=== PATIENT | male | born 1980 | race Caucasian/White ===

== ENCOUNTER 2018-07-08 00:53 | Inpatient (IN) ==
[2018-07-08] MEDS ORDERED: NORCO-7.5 PO ONE (01:33)
[2018-07-08] MEDS ORDERED: TORADOL IM ONE (01:33)
--- NOTE | 2018-07-08 02:06 | PROVIDER DOCUMENTATION ---
This chart was entered by Ioana Porras Scribe, acting as scribe for Concha Christine MD. HPI-EENT General - General Source: patient, family - History of Present Illness-EENT General EENT Location: reports: mouth, facial Quality of Pain: reports: aching Severity: reports: mild Onset/Duration: reports: other (one month, worsening 1 wk ago) Timing: reports: still present Recently seen or treated by another doctor?: Yes ([facility] ) - Throat/Dental Throat/Dental Problem Symptoms: reports: jaw pain (rt jaw), swelling of jaw/face (rt hinduism) <Concha Christine - Last Filed: 07/08/18 06:43> <Chris Valencia - Last Filed: 07/08/18 07:45> - General Chief Complaint: Toothache Stated Complaint: PAIN IN FACE/JAW/NECK Time Seen by Provider: 07/08/18 00:56 Allergies/Adverse Reactions: Patient Allergies Allergy/AdvReac Type Severity Reaction Status Date / Time cefaclor [From Ceclor] Allergy Unknown Verified 07/05/18 16:19 Penicillins Allergy Unknown Verified 07/05/18 16:19 Sulfa (Sulfonamide Allergy Unknown Verified 07/05/18 16:19 Antibiotics) Home Medications: Home Medication List Medication Instructions Recorded Confirmed Last Taken Type Azithromycin [Zithromax Z-Andrew] 250 mg PO DIRECTED #1 pkg 06/19/18 Unknown Rx Doxycycline Hyclate 100 mg PO BID 06/19/18 06/19/18 Unknown History Prednisone 10 mg PO DIRECTED 06/19/18 06/19/18 Unknown History Alprazolam [Xanax] 0.5 mg PO TID PRN #12 tab 07/05/18 Unknown Rx - History of Present Illness-EENT General Nature of Presenting Problem: 37 yom presents w/family to ed w/cc rt sided jaw, swollen rt hinduism for 1 month but worsening pain for 1 wk. pt came to er sunday, saw dr. juares and was dx w/anxiety. pt went to [facility] and was given toradol shot. pt sts shot helped a little. pt was dx w/tmj and followed by dr. arturo richards. pt tried to call eent when pain became worse and was referred to er. pt mother at bedside sts pt can't sleep or swallow and is breaking out in sweats. pt also rx flexeril and toradol by ENT. pt is anxious in ed. family is at bedside. pt had wisdom teeth removed on 04-27-18 pt and rpts pain started 1 wk after sx. (Concha Christine) Review of Systems - Adult - REVIEW OF SYSTEMS - ADULT Constitutional: reports: see HPI, other. denies: fever, fatique, night sweats Eyes: reports: no symptoms reported Ears, Nose, Mouth & Throat: reports: see HPI, other (rt sided jaw pain and rt hinduism swelling). denies: ear pain, nose pain, throat pain Cardiovascular: reports: no symptoms reported Respiratory: reports: no symptoms reported Gastrointestinal: reports: no symptoms reported Genitourinary: reports: no symptoms reported Musculoskeletal: reports: no symptoms reported Integumentary: reports: see HPI, other (diaphoresis). denies: hives, itching, skin sores/ulcer Neurological: reports: no symptoms reported Psychiatric: reports: see HPI, insomnia (due to jaw and hinduism pain). denies: depression, emotional problems, suicidal thoughts Endocrine: reports: no symptoms reported Hematologic/Lymphatic: reports: no symptoms reported Allergic/Immunologic: reports: no symptoms reported All Other Systems: Reviewed and Negative <Concha Christine - Last Filed: 07/08/18 06:43> Past History - Adult - PAST MEDICAL HISTORY-ADULT Review of Records: reports: Old Records Reviewed, Nursing Assessment Review, Medications Reviewed, Social history reviewed & non-contributory. Major Childhood Illnesses: reports: denies history Cardiovascular: reports: denies history Respiratory: reports: asthma Gastrointestinal: reports: denies history Obstetrical/Gynecological: reports: denies history Genitourinary: reports: denies history Musculoskeletal: reports: denies history Neurological: reports: denies history Endocrine/Immune: reports: denies history Other Conditions: reports: other (tmj) - PRIOR SURGERIES/PROCEDURES Surgical/Procedure History: reports: recent surgery, other (wisdom teeth) - IMMUNIZATION STATUS Childhood Immunizations: See Nurse Assessment Flu Vaccine: See Nurse Assessment - FAMILY HISTORY Family History: reviewed, not pertinent - SOCIAL HISTORY Smoking: cigarettes, less than 1 pack/day Provider spent 3-5 mins advising pt. on dangers of tobacco.: Discussed manners to quit use, and f/u contacts for add'l counseling. Substance Use: none/never <Concha Christine - Last Filed: 07/08/18 06:43> Physical Exam- EENT - Physical Exam EENT Initial Vital Signs Reviewed: Yes General Appearance: alert, moderate distress, anxious. negative: slow to respond, obtunded, combative Eye Exam: bilateral eye: normal inspection Ear Exam: bilateral ear: auricle normal Nasal Exam: normal inspection Throat Exam: normal mouth inspection, other (rt hinduism swollen, pt can only open mouth a little due to pain. tenderness to right mandible). negative: tongue swollen, tonsillar exudate, tonsillar swelling, uvula swelling Neck: full range of motion, supple Respiratory: no respiratory distress Cardiovascular: normal peripheral pulses Abdominal Exam: negative: distended Back Exam: normal inspection Extremity: normal range of motion Integumentary: normal color, normal turgor, warm/dry, other (swelling to right hinduism) Neurologic: grossly normal, no motor/sensory deficits Psych/Mental Status: oriented x 3, anxious. negative: normal mood/affect, disheveled, depressed affect, paranoid <Concha Christine - Last Filed: 07/08/18 06:43> Progress - PLAN OF CARE/RESULTS Result Diagrams: 07/08/18 03:38 07/08/18 03:38 - REASSESSMENT Reassessment #1 Time Reassessed: 03:27 Status: improving Reassessment Comment: spoke to pt about CT results, will page [facility] - CT/MRI 1 CT Study: Neck, other (Max Face) Impression: See EMR Report (Thickening of the right temporalis, masseter, and pterygoid muscles with surrounding edema. No fluid collections. Mild right parapharyngeal fat stranding. Adenoids and tonsils are unremarkable. No prevertebral fluid. Salivary glands WNL. Epiglottis normal. Lung apices are clear. No fracture. The right mandibular angle has a permeative appearance with suble periosteal thickening. Teeth #31 and #32 are absent. Impression: Right facial musculature swelling with surroudning edema. Suspect right mandible osteomyelitis as the causea. Recommend contrast enhanced neck CT.) - CONSULTS/PCP/HOSPITALIST Notification #1 *Consult/PCP/Hospitalist*: [place] [facility] Time Discussed: 03:45 Consult Disposition: other (OMFS at [facility] c iron worker, Dr Buckner, declines consult and states that pt needs to discuss with the original oral surgeon who removed the teeth.) - CHANGE OF SHIFT REPORT (ED Provider) 1 Report Given and Care Transferred to:: Dr Valencia Time of Transfer: 06:45 Items Pending: Physician Consult/Arrival (Pending Dr Lugo with oral surgery to take call at 0700 and discuss case with him and final dispo.) <Concha Christine - Last Filed: 07/08/18 06:43> - PLAN OF CARE/RESULTS Result Diagrams: 07/08/18 03:38 07/08/18 03:38 - CONSULTS/PCP/HOSPITALIST Notification #2 Consult: [place] Time Discussed: 07:44 Consult Disposition: Admit <Chris Valencia - Last Filed: 07/08/18 07:45> - PLAN OF CARE/RESULTS Progress/Plan/Lab Results: Vital Signs - 8 hr 07/08/18 01:02 07/08/18 03:29 Temperature 98.9 F 99.3 F Pulse Rate 105 H 97 H Respiratory Rate 29 H 18 Blood Pressure 124/82 119/76 O2 Sat by Pulse Oximetry 100 95 Laboratory Results - last 24 hr 07/08/18 07/08/18 07/08/18 03:38 03:38 03:38 WBC 20.35 H RBC 4.32 L Hgb 13.1 L Hct 38.3 L MCV 88.7 MCH 30.3 MCHC 34.2 RDW Std Deviation 12.9 Plt Count 401 H MPV 9.3 Immature Gran % (Auto) 0.8 H Neut % (Auto) 73.3 Lymph % (Auto) 12.8 L [place] % (Auto) 12.7 H Eos % (Auto) 0.2 Baso % (Auto) 0.2 Immature Gran # (Auto) 0.16 H Neut # (Auto) 14.92 H Lymph # (Auto) 2.60 [place] # (Auto) 2.59 H Eos # (Auto) 0.04 Baso # (Auto) 0.04 ESR 52 H Sodium 130 L Potassium 4.1 Chloride 94 L Carbon Dioxide 27 Anion Gap 9 BUN 11 Creatinine 0.7 Estimated GFR/1.73 m2 > 60 BUN/Creatinine Ratio 16 Glucose 113 H Calculated Osmolality 261 Calcium 8.8 Total Bilirubin 0.42 AST 13 ALT 14 Alkaline Phosphatase 74 C-React Prot High Sens > 10.000 Total Protein 6.2 L Albumin 3.7 Globulin 2.5 Albumin/Globulin Ratio 1.5 Plasma Lactate 07/08/18 03:38 WBC RBC Hgb Hct MCV MCH MCHC RDW Std Deviation Plt Count MPV Immature Gran % (Auto) Neut % (Auto) Lymph % (Auto) [place] % (Auto) Eos % (Auto) Baso % (Auto) Immature Gran # (Auto) Neut # (Auto) Lymph # (Auto) [place] # (Auto) Eos # (Auto) Baso # (Auto) ESR Sodium Potassium Chloride Carbon Dioxide Anion Gap BUN Creatinine Estimated GFR/1.73 m2 BUN/Creatinine Ratio Glucose Calculated Osmolality Calcium Total Bilirubin AST ALT Alkaline Phosphatase C-React Prot High Sens Total Protein Albumin Globulin Albumin/Globulin Ratio Plasma Lactate 0.6 Orders Category Date Time Status CT MAXILLOFACIAL(SINUS) W/O CO [CT] Stat Exams 07/08/18 01:[address] NECK W/O CONTRAST [CT] Stat Exams 07/08/18 01:32 Taken BLOOD CULTURE [BLDCUL] Stat Lab 07/08/18 03:38 Results CBC WITH ELECTRONIC DIFF [HEME] Stat Lab 07/08/18 03:38 Completed COMPREHENSIVE METABOLIC PANEL [CHEM] Stat Lab 07/08/18 03:38 Completed CRP HIGH SENSITIVITY Stat Lab 07/08/18 03:38 Completed LACTATE, PLASMA [CHEM] Stat Lab 07/08/18 03:38 Completed SED RATE [HEME] Stat Lab 07/08/18 03:38 Completed Hydrocodone/APAP 7.5 mg/325 mg [Chamberlain-7.5] Med 07/08/18 01:33 Discontinued 1 each PO NOW ONE Ketorolac [Toradol] Med 07/08/18 01:33 Discontinued 60 mg IM NOW ONE 0327: Spoke to family and patient regarding CT findings. Pain better controlled and patient more calm 0330: Paged [facility] to discuss with OMFS c iron worker 0345: Spoke to [facility] stating that they oaged Dr Buckner who states that patient needs to be evaluated by the original surgeon who removed the wisdom teeth and he declines the consult 0347: Spoke to family regarding holding patient in the ED until Dr Lugo who is c iron worker for oral surgery at 0700 vs trying to call Dr Gibson who is the oral surgeon who removed the wisdom teeth vs admission to hospitalist for OBS. Will hold off OBS admission at this time until we can assure that Dr Lugo will be willing to be consulted. Family is requesting the original oral surgeon Dr Gibson not be called as at this point they would like a 2nd opinion. Will await to page Dr Lugo until 0700. (Concha Christine) Departure - Critical Care Note This patient required my direct & personal management of CC.: No <Concha Christine - Last Filed: 07/08/18 06:43> - Departure Date of Disposition Decision: 07/08/18 Time of Disposition Decision: 07:44 Certified Medical Emergency: Emergent - Critical Care Note This patient required my direct & personal management of CC.: No <Chris Valencia - Last Filed: 07/08/18 07:45> - Departure DIAGNOSIS: Osteomyelitis of mandible Disposition: ADMITTED INPATIENT 09 Condition: Good Additional Freetext Instructions: ED Follow Up Instructions: You have been treated by a care provider in the Emergency Department. These instructions are being provided to you so you can have an understanding of how to care for yourself upon discharge. Upon discharge from the Emergency Department, you are responsible for making arrangements for follow-up care by a physician of your choice. Take all prescribed medications as directed. Return to the Emergency Department immediately for any new or worsening symptoms. You may call the Physician Referral phone number at [phone] to obtain a list of Physicians who are taking new patients. Referrals and Follow-Ups: Jacques Garibay DO [Primary Care Provider] - Attestation - Physician/ CHRISSY Attestation Patient care was provided by Advanced Practice Provider:: No The physician spent face to face time with patient:: Yes Advanced Practice Provider documentation review:: Supervising physician onsite and consulted in the evaluation and care of this patient. The physician did have a face to face encounter with the patient. <Concha Christine - Last Filed: 07/08/18 06:43> This chart was documented by the indicated vonda (Ioana Porras, Alexandreaibe) and accurately reflects the services I performed and decisions made by me, Concha Puga MD, as attested by the provider's signature.
[2018-07-08 04:02] LABS: BASO# 0.04 X1000 (0.0-0.2); BASO% 0.2 % (0.0-0.8); EOS# 0.04 X1000 (0.0-0.7); EOS% 0.2 % (0.0-10.0); HEMATOCRIT 38.3 % (42.0-52.0); HEMOGLOBIN 13.1 g/dL (14.0-18.0); IMM GRAN# 0.16 X1000 (0.0-0.04); IMM GRAN% 0.8 % (0.0-0.5); LYMPH% 12.8 % (20.5-51.1); MCH 30.3 PG (27-31); MCHC 34.2 g/dL (33-37); MCV 88.7 FL (81-99); MONO# 2.59 X1000 (0.11-0.59); MONO% 12.7 % (1.7-9.3); MPV 9.3 FL (7.4-10.4); NEUT# 14.92 X1000 (1.4-6.5); NEUT% 73.3 % (42.2-75.2); PLT 401 X1000 (130-400); RBC 4.32 XMIL (4.7-6.1); RDW 12.9 % (11.5-14.5); WBC 20.35 X1000 (4.8-10.8)
[2018-07-08 04:22] LABS: AGAP 9; ALB/GLOB RATIO 1.5; ALBUMIN 3.7 g/dL (3.5-5.0); ALKALINE PHOSPHATASE 74 U/L (32-122); BUN 11 mg/dL (8-22); CALCIUM 8.8 mg/dL (8.8-10.2); CHLORIDE 94 mmol/L (98-107); COSMO 261; CREATININE 0.7 mg/dL (0.7-1.2); ESTIMATED GFR > 60; GLUCOSE 113 mg/dL (70-104); GOT 13 U/L (10-34); GPT 14 U/L (10-44); POTASSIUM 4.1 mmol/L (3.5-5.1); SODIUM 130 mmol/L (136-145); TCO2 27 mmol/L (25-35); TOTAL BILIRUBIN 0.42 mg/dL (0.20-1.00); TOTAL PROTEIN 6.2 g/dL (6.3-8.3)
[2018-07-08 05:07] LABS: SED RATE 52 mm/hr (0-15)
--- NOTE | 2018-07-08 07:51 | Diag Imaging Result Doc PS360 ---
EXAM: CT MAXILLOFACIAL(SINUS) W/O CO 07/08/2018 HISTORY: swelling/pain in neck/face, states cant swallow TECHNIQUE: CT of the facial bones COMMENT: There is osteolysis in the angle of the mandible extending into the posterior mandibular body on the right, and there is some periodontal disease posteriorly. Moth-eaten destruction extends into the ramus. The mandibular condyles are intact. The paranasal sinuses are clear. The epiglottis and hypopharynx are normal in appearance. The pharynx and nasopharynx are unremarkable, there is some swelling of the right masseter and soft tissue swelling on the medial side of the mandibular ramus is also present with some displacement of the pterygoids medially. Given the lack of contrast on the examination, the possibility of sublingual cellulitis/abscess (Jerad's Angina) cannot be excluded. IMPRESSION: Probable chronic osteomyelitis of the right mandible with extension into the soft tissues both medially and laterally and possibly into the sublingual space on the right. Electronically signed by Connor Persaud 07/08/2018 7:49 AM
--- NOTE | 2018-07-08 07:56 | Diag Imaging Result Doc PS360 ---
EXAM: CT NECK W/O CONTRAST 07/08/2018 HISTORY: swelling/pain in neck/face, states cant swallow TECHNIQUE: This exam was performed using automated exposure control, adjustment of mA or kV according to patient size, and/or use of iterative reconstruction technique. COMMENT: There is some questionable soft tissue swelling in the sublingual space particularly on the right side. There is destruction of the right mandibular angle region, which has been previously described (see CT of the facial bones,) and which is probably related to osteomyelitis following wisdom tooth extraction. This appears to be associated with soft tissue swelling deep to the masseter and also on the lateral aspect of the pterygoid muscles displacing them medially. The borders of the abnormality are not as clear as they would have been had contrast been given, however this may be up to 15 mm in thickness. The visualized portion of the chest is unremarkable. There are no additional osseous abnormalities. IMPRESSION: Chronic osteomyelitis of the right mandible with cellulitis/abscess in the surrounding soft tissues, possibly including the sublingual space. Electronically signed by Connor Persaud 07/08/2018 7:53 AM
[2018-07-08] MEDS ORDERED: ZOFRAN IV PRN (07:58)
[2018-07-08] MEDS ORDERED: NS 1,000 ML IV ONE (07:58)
[2018-07-08] MEDS ORDERED: TYLENOL PO PRN (07:58)
[2018-07-08] MEDS ORDERED: VANCOMYCIN IV PER PHARMACY MISC SCH (08:00)
[2018-07-08] MEDS ORDERED: XANAX PO PRN (08:00)
[2018-07-08] MEDS ORDERED: TORADOL IV SCH (08:00)
[2018-07-08] MEDS ORDERED: AZACTAM 1 GM in NS 50 ML IV ONE (09:00)
[2018-07-08] MEDS ORDERED: AZACTAM 1 GM in NS 50 ML IV SCH (09:00)
--- NOTE | 2018-07-08 09:27 | Diag Imaging Result Doc PS360 ---
EXAM: CT NECK W/CONTRAST 07/08/2018 HISTORY: poss. right mandibular osteomyelitis TECHNIQUE: This exam was performed using automated exposure control, adjustment of mA or kV according to patient size, and/or use of iterative reconstruction technique. COMMENT: There is soft tissue swelling and apparent abscess or necrotic mass extending in the grad intern space above the coronoid process of the right side of the mandible, and between the coronoid and the mandibular condyle and on both sides of the mandibular ramus. This displaces the pterygoid muscles medially. It is most well-circumscribed, however superiorly posterior to the coronoid process where it measures 2.5 cm in transverse dimension. Bony destruction of the right side of the mandible has been previously discussed. There are nonspecific submandibular nodes and spinal accessory nodes on the right. No evidence of abnormal contrast enhancement is present in the sublingual space. IMPRESSION: Chronic osteomyelitis of the right side of the mandible with abscess in the upper grad intern space on the right. Electronically signed by Connor Persaud 07/08/2018 9:24 AM
--- NOTE | 2018-07-08 10:50 | HISTORY AND PHYSICAL ---
PRIMARY CARE PHYSICIAN: Dr. Jacques Garibay DENTIST: Dr. Zamarripa ENT: Dr. Doan ORAL SURGEON: Dr. Gibson from [facility] CHIEF COMPLAINT: Right jaw pain. HISTORY OF PRESENT ILLNESS: Mr. Aaron Will is a 37-year-old male with a medical history of GERD and asthma, who states that on 04/27/2018 had a right lower jaw wisdom tooth and molar extraction secondary to the wisdom tooth causing pressure on a nerve which was causing numbness in the right side of lower lip. He states that he was fine for about a week to 1-1/2 weeks after surgery and then started developing pain in the right lower jaw region to the point it was difficult to chew food and swallow. He went to see his oral surgeon, Dr. Gibson, about 1-1/2 weeks after surgery, who stated that postop followup looked good. There appeared to be no infection at that time. He continued to have pain in that area. He went back to Dr. Gibson who actually pulled out a bone spur from that location of surgery, and he did that in the office. Afterwards, he started developing right ear pain. He went to the [place] ER at that time who then referred him to ENT. So he went to see Dr. Doan with ENT who did some x-ray imaging of the jaw and diagnosed him with TMJ, started him on steroids and pain medicine. Then on Sunday, due to symptoms that were worsening, he represented to the emergency department where he was diagnosed with anxiety and sent back home with Xanax. Symptoms continued to worsen. He developed night sweats, swelling, unable to swallow solids, just only able to take in fluids. He had weight loss. So he represented. Evaluation reveals that he has an elevated white blood cell count of 20,000, elevated CRP, and imaging showed that he has chronic osteomyelitis of the right mandible and cellulitis and abscess of the surrounding tissues, possibly including the sublingual space, and that was a CT of the neck without contrast. With contrast showed the abscess in the upper corporate strategy associate space on the right. It is showing some bone destruction. The ER physician attempted to contact the on-call oral maxillofacial surgeon but was unsuccessful at getting in touch with the on-call doctor. We will consult Dr. Johnson and get him started on broad spectrum antibiotics. There was also an attempt to get him transferred to [facility] which that was turned down as well. PAST MEDICAL HISTORY: 1. GERD. 2. Asthma. PAST SURGICAL HISTORY: Right mandibular wisdom tooth with molar tooth, a total of 2 teeth were extracted, on 04/27/2018, and he has also had right mandible bone spur removed from that same location. SOCIAL HISTORY: The occasional cigar. Denies alcohol or illicit drug use. He is . FAMILY HISTORY: Mother had colon cancer. Father's side of the family has heart disease. ALLERGIES: Cefaclor, penicillin and sulfa. Penicillin causes rash. Sulfa causes anaphylaxis. HOME MEDICATIONS: Have not been verified. He was most recently sent home with some Xanax. It looks like he has also had what looks like doxycycline, prednisone, azithromycin earlier this month. The mother also states he has a rescue inhaler if he needed it for his asthma. REVIEW OF SYSTEMS: A 14-point review of systems was complete, and all were negative except for those mentioned in the above HPI. He denies having any foul taste in his mouth or any purulent drainage from the area. It was very difficult to visualize that area, as he was having difficulty opening his mouth wide enough. There is some soft tissue swelling in his right mandible area and along the neck a little bit, but he complains of pain in this area, unable to open his mouth, and night sweats. Otherwise, no other complaints. PHYSICAL EXAMINATION: VITAL SIGNS: Temperature is 98.4, heart rate 78, respiratory rate 19, blood pressure 111/62, O2 saturation 99% on room air. GENERAL: Mr. Aaron Will is a 37-year-old male. He is in no acute distress. He is able to answer questions appropriately. HEENT: Atraumatic. He is normocephalic. There is palpable swelling in the right mandibular area. Not hot to touch. Pupils are equal, round and reactive to light. Extraocular movements were intact. Mucous membranes are moist. There is difficulty in visualization of the right with some tooth excision areas, he was unable to open his mouth fully. NECK: Mild swelling in the right upper aspect of his neck. Otherwise no other palpable masses. Trachea is midline. CARDIOVASCULAR: S1, S2. Regular rate and rhythm. No rubs, gallops or murmurs. EXTREMITIES: No lower extremity edema. Plus 2 dorsalis and radial pulses. Negative JVD or carotid bruits. PULMONARY: Clear to auscultation with bilateral breath sounds. No accessory muscle use or work of breathing noted. GASTROINTESTINAL: Soft, nontender and nondistended. Positive bowel sounds x4. EXTREMITIES: Moves all extremities equally with full range of motion. NEUROLOGICAL: Alert and oriented x3. Follows commands. Sensory is intact. SKIN: Warm, dry and intact. DIAGNOSTIC DATA: White blood cells 20,000, hemoglobin 13, hematocrit 38, platelet count 401. Sodium is 130, potassium 4.1, BUN is 11, creatinine 0.7, glucose 113, calcium 8.8, bilirubin 0.42, AST is 13, ALT is 14. CRP greater than 10. ESR is 52. Total protein 6.2. Albumin is 3.7. Serum lactate 0.6. IMAGING: He had a CT of the maxillofacial sinus without contrast that showed probable chronic osteomyelitis of the right mandible with extension into the soft tissues both medially and laterally and possible into the sublingual space on the right. He had a neck CT without contrast which showed chronic osteomyelitis of the right mandible. The cellulitis abscess in the surrounding soft tissues possibly including the sublingual space. He had a neck CT with contrast that showed chronic osteomyelitis of the right side of the mandible with abscess in the upper corporate strategy associate space on the right. There is soft tissue swelling and apparent abscess or necrotic mass extending in the corporate strategy associate space above the coronoid process of the right side of the mandible and between the coronoid and the mandibular condyle and on both sides of the mandibular ramus. This displaces the pterygoid muscles medially. It is most well circumscribed, however, superiorly posterior to the coronoid process where it measures 2.5 cm in transverse dimension. There is bony destruction of the right side of the mandible, nonspecific submandibular nodes and spinal accessory nodes on the right. ASSESSMENT AND PLAN: 1. Chronic osteomyelitis of the right side of the mandible with abscess in the upper corporate strategy associate space on the right. Possible necrotic mass per CT of the neck with contrast. The on-call oral maxillofacial surgery, there were difficulties getting in touch with him. [facility] denied the transfer, and so he is here. We are going to treat him with IV antibiotics and consult Dr. Johnson and treat his pain with A[place]ate. He has inflammatory factors that are elevated, so we will do some IV Toradol that will help with the pain and inflammation as well. 2. History of gastroesophageal reflux disease. 3. History of asthma. No exacerbation. 4. DVT prophylaxis with SCDs. Dictated by VINICIUS Andre for Maryjo Sharp MD cc: VINICIUS Andre MD I performed a face to face encounter on the patient. I reviewed all labs and imaging on the patient. I agree with the H&P as dictated. is a 37 year old male with a history of a wisdom tooth extraction in April of 2018 who presented to the Er with a chief complaint of right jaw pain. A CT of the neck was done that revealed chronic osteomyelitis of the right mandible and an abscess in the upper corporate strategy associate space on the right. The patient will be admitted and started on broad spectrum antibiotics. Will also consult ID. The engine repairer production Maxillofacial surgeon is out of town. The patient will likely require transfer to another facility for further treatment. [email or web address]
[2018-07-08] MEDS ORDERED: VANCOMYCIN 2,200 MG in NS 500 ML IV ONE (11:00)
[2018-07-08] MEDS: CLINDAMYCIN 900 MG/D5W 900 MG/50 ML IVPB IV SCH ×2 (11:16→18:30)
[2018-07-08] MEDS: NS 1,000 ML IV SCH (11:24)
--- NOTE | 2018-07-08 13:05 | INFECTIOUS DISEASE CONSULT REP ---
DATE: 07/08/2018 CONCLUSION: A 37-year-old male is admitted to the hospital with chronic right-sided mandibular osteomyelitis. The patient also has an abscess in the upper right material flow engineer space. The patient also has drug allergies to Ceclor and penicillin manifested by a diffuse pruritic rash. RECOMMENDATIONS: I have placed the patient on clindamycin. A side effect of the antibiotic, namely diarrhea, has been explained to the patient who agrees with treatment. I told the patient to notify us if he starts having diarrhea. I have tried to put in a consult for the oral surgeon who is seeing the patient, namely Dr. Bunch, but I have been unable to contact the patient because we have not been able to find his telephone number. I have put in a consult for Dr. Doan. DISCUSSION: The patient in the past month has developed right facial pain associated with trismus and inability to close or open his jaw fully. He has not had fever or shaking chills. The patient's CBC shows a white count of 20,350, hemoglobin 13.1, platelet count 401,000. Creatinine 0.7. GFR is greater than 60. The patient's liver function studies are normal. Blood cultures are pending. CT scan of the face showed chronic mandibular osteomyelitis with an abscess in the upper right material flow engineer space. PAST MEDICAL HISTORY/REVIEW OF SYSTEMS: Eyes and ears: His vision and hearing are okay. Ear, nose, and throat: See present illness. Neck: No stiffness. Respiratory: No cough or shortness of breath. Cardiac: No chest pain or palpitations. GI: No nausea, vomiting, or diarrhea. The patient has been unable to eat because of the fact that he can't open or close his jaw fully. The patient has not had diarrhea or vomiting. : No dysuria or flank pain. Bones, joints, muscles: See present illness regarding the patient's mandibular osteomyelitis. Neurologic: No seizures. No loss of motor or sensory function except for the patient being unable to open or close his jaw fully. Integument: No rash. PREVIOUS HOSPITALIZATIONS AND OPERATIONS: None. MEDICAL DISEASES: Negative for diabetes mellitus and seizures. INFECTIOUS DISEASE HISTORY: Negative for pneumonia and UTI. FAMILY HISTORY: Positive for diabetes mellitus, hypertension, myocardial infarction, and cancer. SOCIAL HISTORY: The patient lives in [place]. He is . He works at [employer]. He smokes cigars. He does not drink alcoholic beverages or abuse drugs. He is . He has a dog as a pet. ALLERGIES: He is allergic to sulfa and penicillin, both manifested by diffuse pruritic rash. MEDICATIONS: He does not take any medication at home. PHYSICAL EXAMINATION: Vital Signs: Temperature is 98.4 degrees, pulse 78, respirations 19, blood pressure 111/62. Patient weighs 141 pounds. General: This is an ill-appearing young male. He is in no acute distress. Head, eyes, ears, nose, and throat: The patient has swelling and tenderness on the right jaw and side of his face. He can barely open or close his mouth. Neck: No meningismus. Lungs: Clear to auscultation. Cardiovascular: Regular heart rate. Abdomen: Soft and nontender. Neurologic: Patient is alert. He can move his extremities. There is no tremor. His sensation is intact to touch. His memory as regarding his medical history is intact. Integument: No rash. Thank you for the consult. cc: Bill Johnson MD
[2018-07-08 14:39] LABS: URINE SOURCE CLEAN CATCH
[2018-07-08] MEDS: NORCO-7.5 PO PRN ×2 (14:43→18:30)
[2018-07-08 14:47] LABS: BILIRUBIN URINE NEGATIVE (NEGATIVE); BLOOD URINE NEGATIVE (NEGATIVE); COLOR STRAW; GLUCOSE URINE NEGATIVE (NEGATIVE); KETONE URINE NEGATIVE (NEGATIVE); LEUKOCYTES URINE NEGATIVE (NEGATIVE); NITRITE URINE NEGATIVE (NEGATIVE); PH URINE 6.5; PROTEIN URINE NEGATIVE (NEGATIVE); SP GRAVITY URINE 1.011; TURBIDITY URINE CLEAR (CLEAR); UR EPITHELIAL CELLS <10 /HPF (<10); URINE BACTERIA NEGATIVE /HPF; URINE RBC <10 /HPF (<10); URINE WBC <10 /HPF (<10); UROBILINOGEN URINE NORMAL (NORMAL)
[2018-07-08] MEDS ORDERED: VANCOMYCIN 1,750 MG in NS 250 ML IV SCH (23:00)
[2018-07-09] MEDS: NS 1,000 ML IV SCH ×4 (00:22→20:23)
[2018-07-09] MEDS: NORCO-7.5 PO PRN ×4 (02:18→20:13)
[2018-07-09] MEDS: CLINDAMYCIN 900 MG/D5W 900 MG/50 ML IVPB IV SCH ×3 (03:28→20:23)
[2018-07-09 07:15] LABS: HEMOGLOBIN 11.7 g/dL (14.0-18.0); RBC 3.95 XMIL (4.7-6.1); WBC 19.94 X1000 (4.8-10.8)
[2018-07-09 07:16] LABS: BASO# 0.03 X1000 (0.0-0.2); BASO% 0.2 % (0.0-0.8); EOS# 0.03 X1000 (0.0-0.7); EOS% 0.2 % (0.0-10.0); IMM GRAN# 0.08 X1000 (0.0-0.04); IMM GRAN% 0.4 % (0.0-0.5); LYMPH# 1.85 X1000 (1.2-3.4); LYMPH% 9.3 % (20.5-51.1); MCH 29.6 PG (27-31); MCHC 32.5 g/dL (33-37); MCV 91.1 FL (81-99); MONO# 3.11 X1000 (0.11-0.59); MONO% 15.6 % (1.7-9.3); MPV 9.2 FL (7.4-10.4); NEUT# 14.84 X1000 (1.4-6.5); NEUT% 74.3 % (42.2-75.2); PLT 365 X1000 (130-400)
[2018-07-09 07:29] LABS: INR 1.22; PROTIME 16.4 Seconds (11.0-16.0); PTT 41.7 Seconds (22.3-41.8)
[2018-07-09 07:40] LABS: AGAP 10; ALBUMIN 3.2 g/dL (3.5-5.0); ALKALINE PHOSPHATASE 85 U/L (32-122); BUN 7 mg/dL (8-22); CALCIUM 8.3 mg/dL (8.8-10.2); CHLORIDE 97 mmol/L (98-107); COSMO 263; CREATININE 0.8 mg/dL (0.7-1.2); ESTIMATED GFR > 60; GLUCOSE 108 mg/dL (70-104); GOT 16 U/L (10-34); GPT 32 U/L (10-44); POTASSIUM 4.6 mmol/L (3.5-5.1); SODIUM 132 mmol/L (136-145); TCO2 25 mmol/L (25-35); TOTAL BILIRUBIN 0.83 mg/dL (0.20-1.00); TOTAL PROTEIN 6.4 g/dL (6.3-8.3)
--- NOTE | 2018-07-09 17:55 | PROGRESS NOTE ---
DATE: 07/09/2018 SUBJECTIVE: This is a patient of Dr. Jacques Garibay. Dentist is Dr. Zamarripa. ENT is Dr. Doan. Oral surgeon is Dr. [facility]. Complains of right jaw pain, presented a 37-year-old male with medical history of gastroesophageal reflux disease, asthma. States that on 04/27/2018 had right lower jaw wisdom tooth and molar extraction secondary to wisdom tooth causing pressure on the nerve which was causing numbness in the right side of his left lip. States that he was fine for about a week, 1-1/2 weeks after surgery. He then started developing pain in the right lower jaw region to the point that it was difficulty to chew food and swallow. Went to see oral surgeon Dr. Gibson about 1/2 weeks after surgery. Started postop followup look and it apparently looked good, appeared no infection at this time. He continued to have pain in this area. Went back see Dr. Gibson. Actually, pulled out a bone spur from that location of surgery by report and did that in the office. Afterwards started developing right ear pain. Went to the ER at [place]. At this time, referred him to ENT, Dr. Doan, who did some x-ray imaging of the jaw. Diagnosed him with TMJ, starting with home steroids and and pain medicine. Then, on Sunday due to symptoms that were worsening he presented to the emergency department. He was diagnosed with anxiety, sent back home on Xanax. Symptoms continued to worsen. He Developed right sweat. He developed weight loss, sweats, swelling, unable to swallow solids, just only able to take in fluids. He had weight loss, so he presented to the emergency room. Elevated white count of 20,000 elevated CRP. Imaging showed the chronic osteomyelitis of the right mandible and cellulitis and osteo and abscess of the surrounding tissues, possibly including sublingual space and was a CT of the neck without interspace. This was seen on CT of the neck without contrast. With contrast showed abscess in the upper raw scales operator space in the right and some bony destruction. The ER physician attempted to contact on- call oral maxillary surgeon, but was unsuccessful getting in touch with the on- call doctor, so he was admitted to the hospital and were able to contact Dr. Gibson. I think the plan is for transfer. He was begun on antibiotics. He reports that he is about the same as far as his comfort level. PHYSICAL EXAMINATION: Vital Signs: Temp 99.3, pulse 85, respirations 16, blood pressure 120/65. HEENT: Pupils are equal and round. Lungs: Lungs are clear in all lung tiwari. Cardiovascular: Regular rhythm and rate without murmur or S3. Abdomen: Soft. Skin: Warm and dry. CURRENT MEDICATIONS: He is on clindamycin 900 mg IV q.8 and vancomycin to 2200 mg. he got 1 dose of that. He is getting aztreonam 1 g, he received 1 dose of that. LABORATORY: Cultures pending. Dr. Johnson has been following. ASSESSMENT AND PLAN: Right-sided mandibular osteomyelitis. The patient has abscess in the right upper right raw scales operator space. The patient also has allergies to Ceclor and penicillin, so put patient on clindamycin which we will continue. Plan is to transfer patient today. cc: Nirav Dyson MD MTDD
[2018-07-09] MEDS: SOLU-MEDROL IV SCH (19:04)
[2018-07-10] MEDS: CLINDAMYCIN 900 MG/D5W 900 MG/50 ML IVPB IV SCH ×3 (03:16→18:33)
[2018-07-10] MEDS: SOLU-MEDROL IV SCH ×3 (03:16→18:34)
[2018-07-10] MEDS: NS 1,000 ML IV SCH ×2 (08:34→18:40)
--- NOTE | 2018-07-10 11:22 | INFECTIOUS DISEASE PROGRESS NO ---
DATE: 07/10/2018 PRESENT ILLNESS: The patient has chronic osteomyelitis of the right mandible. There also was seen on CAT scan an abscess in the upper right riding silks custodian space. The patient has drug allergies to Ceclor and penicillin manifested by a diffuse pruritic rash. MEDICATIONS: The patient is on clindamycin 900 mg IV every 8 hours. PHYSICAL EXAMINATION: Vital Signs: Temperature is 97.9 degrees, pulse 89, respirations 12, blood pressure 117/72. Generally: This is an ill-appearing, young male. He looks much better this morning than he did yesterday and this is probably due to the fact that he got a big dose of steroids. Head, Eyes, Ears, Nose, and Throat: He has right facial swelling and also tenderness in the mandibular area. He had very severe trismus. He could not open his mouth and he could not close it but after the steroids, he has much better movement of closing and opening his mouth. Neck: No meningismus. Lungs: Clear to auscultation. Cardiovascular: Heart rate is regular. Abdomen: Soft and nontender. Neurologic: The patient is awake. He can move his extremities. He does not have a tremor. LAB AND X-RAY: The patient's CT scan showed the chronic osteomyelitis and abscess as mentioned above. Today, the patient's CBC shows a white count of 19,940, hemoglobin 11.7, and platelet count 365,000. Creatinine is 0.8. GFR is greater than 60. Liver function studies are normal. ASSESSMENT AND PLAN: The patient has chronic mandibular osteomyelitis with an associated abscess. Because of the patient's drug allergies to penicillin and Ceclor, I am treating him with a high dose of clindamycin. The patient's oral surgeon who has been operating on the patient is Dr. Jam Gibson. Initially, the plan was to send the patient to Dr. Gibson's service. He works at a hospital in [place]. He initially was going to be transferred to the oral surgeon who initially operated on him to the hospital in [place] where the oral surgeon has hospital privileges but now it appears that the patient may instead go to [facility]. I will keep going with the patient's antibiotics. COMORBIDITIES: The patient did have oral surgery. He smokes cigars. cc: Bill Johnson MD
--- NOTE | 2018-07-10 13:37 | PROGRESS NOTE ---
DATE: 07/10/2018 SUBJECTIVE: Mr. Will is feeling much better. The pressure is down. There is much less pain. I explained to him that I am trying to get him set up to see an oral maxillofacial surgeon at [facility]. Concerned about the extent of the infection in his right jaw and the osteomyelitis. He is more comfortable. OBJECTIVE: Temperature 99.3 degrees, pulse 90, respirations 16, blood pressure 117/74. Pupils are equal and round. Lungs are clear in all lung tiwari. Cardiovascular Examination: Regular rhythm and rate without murmur or S3. Abdomen is soft. Skin is warm and dry. Urine output is 2800 mL. ASSESSMENT AND PLAN: Osteomyelitis of the right mandible is also seen on CT scan and abscess in the upper right dieing out machine operator space. The patient has drug allergies to Ceclor and penicillin. Getting clindamycin 900 mg intravenously every 8 hours at this time. Also started on Solu-Medrol because of increased pressure and pain. That is giving him quite a bit of relief. I will continue to try and see what I can find as far as getting him an oral maxillofacial surgeon involved. I expect we are going to need extensive therapy with intravenous antibiotics. cc: Nirav Dyson MD
--- NOTE | 2018-07-10 17:05 | DISCHARGE SUMMARY ---
ADMISSION DATE: 07/08/2018 DISCHARGE DATE: DISPOSITION: The patient was admitted on 07/08/2018. Anticipate discharging him home. Actually he is going to [facility] on 07/11/2018. HOSPITAL COURSE: This is a 37-year-old patient of Dr. Jacques Garibay, oral surgeon Dr. Gibson and [facility]. He presented with right jaw pain. He had come to the emergency room a couple times before. This is a 37-year-old male with medical history of gastroesophageal reflux disease and asthma. He states on 04/27/2018 he had a right lower jaw wisdom tooth and molar extraction secondary to the wisdom tooth causing pressure on the nerve, which was causing numbness in the right side of his lower lip. He states that he was fine for about a week and a half after surgery, then he started developing pain in the right lower jaw region to the point that it was difficult to chew food and swallow. He went to see his oral surgeon, Dr. Gibson, about 1-1/2 weeks after surgery and stated that the postoperative followup looked good. There appeared to be no infection at the time. He continued to have pain in that area. He went back to Dr. Gibson, who actually pulled out a bone spur from the location of the surgery, and he did that in the office. Afterwards he started developing right ear pain. He went to [facility]. At that time they referred him to Ear, Nose and Throat, Dr. Doan. They did x-ray imaging of the jaw, diagnosed him with TMJ, and started him on steroids and pain medicine. On the following Sunday, due to symptoms of jaw pain he re-presented to the emergency department here in [place] and they could not find anything, and sent him back home. Symptoms continued to worsen. He developed night sweats, swelling, unable to swallow solids, just only able to take fluids. He had weight loss, and so he re-presented to the emergency room. On evaluation white count was 20,000, elevated CRP. Imaging showed that he had chronic osteomyelitis of the right mandible and cellulitis and abscess of the surrounding tissues, possibly including the sublingual space. CT of the neck was done without contrast. The contrast showed the abscess in the upper glass wool blanket machine feeder space on the right and some bone destruction. ER attempted to contact oral maxillofacial surgeon, but were unsuccessful. He was admitted here and we started him on IV clindamycin. Dr. Johnson was helping from Infectious Disease. I did start him on some Solu-Medrol, which gave him some relief. He feels like it is draining from the inside. I was able to contact Dr. Foley's service at [facility]. I spoke to his resident, Dr. Gregg, and he wants us to send him to [facility] on 07[facility]11/2018. Their phone number is [phone]. I did call that clinic and they are expecting him. I am going to let him go early in the morning. The address of this clinic is [address] [place] [address]. We will get copies of the CAT scan, and we will let him go on p.o. clindamycin. The CT scan showed chronic osteomyelitis of the right side of the mandible with abscess in the upper glass wool blanket machine feeder space on the right. The abscess measures below 2.5 cm by their report. cc: Nirav Dyson MD
[2018-07-11] MEDS: SOLU-MEDROL IV SCH (02:52)
[2018-07-11] MEDS: CLINDAMYCIN 900 MG/D5W 900 MG/50 ML IVPB IV SCH (02:53)
[2018-07-11 04:22] VITALS: BP 109/70
== END 2018-07-11 06:26 | disposition home or self-care (01) | DRG 158 ==
LOC: ED 00:53 → SUATTDRO 00:54 → 3N 00:54
PROVIDERS: ATTEND Emergency Medicine
CPT/HCPCS: 70486; 70490; 70491; 80053; 81001; 83605; 83735; 85025; 85610; 85651; 85730; 86141; 87040; 96372; 99285; A9270; J1885; J2920; J7030; Q9967; S0073